=== PATIENT | male | born 1960 | race African-American/Black ===

== ENCOUNTER 2017-04-06 06:12 | Emergency (ER) | payer BC ==
[~2017-04-06] VITALS: Ht 177.8 cm; Wt 81.6 kg
[2017-04-06] MEDS ORDERED: HYDRALAZINE HC100 MG PO (06:26)
[2017-04-06] MEDS ORDERED: PRINIVIL10 MG PO (06:26)
[2017-04-06] MEDS ORDERED: NORVASC PO (06:27)
[2017-04-06] MEDS ORDERED: COREG PO (06:28)
[2017-04-06 06:50] LABS: URINE SOURCE CLEAN CATCH
[2017-04-06 06:53] LABS: URINE APPEARANCE CLEAR; URINE BILIRUBIN NEG (NEG); URINE BLOOD TRACE-INTACT (NEG); URINE COLOR YELLOW; URINE GLUCOSE NEG (NORM); URINE KETONE NEG (NEG); URINE LEUKOCYTE ESTERASE NEG (NEG); URINE NITRATE NEG (NEG); URINE PH 6.5 (5-8); URINE PROTEIN 2+ (NEG); URINE UROBILINOGEN 0.2 MG/DL (NORM)
[2017-04-06 06:54] LABS: MICRO INDICATED? YES
[2017-04-06 06:55] LABS: BASOPHIL# 0.1 X10e3 (0-0.3); BASOPHIL% 1.2 % (0-2.5); EOSINOPHIL# 0.1 X10e3 (0-0.7); EOSINOPHIL% 1.8 % (0.0-7.0); HEMATOCRIT 43.2 % (38.0-50.0); HEMOGLOBIN 14.7 gm/dL (13.0-16.0); LYMPHOCYTE# 1.4 X10e3 (1.0-3.5); LYMPHOCYTE% 21.3 % (17.0-45.0); MEAN CELL VOLUME 89.7 FL (83-96); MEAN CORPUSCULAR HEMOGLOBIN 30.5 PG (28-34); MEAN PLATELET VOLUME 9.1 FL (6.5-11.5); MONOCYTE# 0.5 X10e3 (0-1.0); NEUTROPHIL# 4.5 X10e3 (1.5-7.1); NEUTROPHIL% 67.7 % (40-75); PLATELET COUNT 183 X10e3 (140-420); RED BLOOD COUNT 4.81 X10e (3.90-5.60); RED CELL DISTRIBUTION WIDTH 13.3 % (11.0-15.5); WHITE BLOOD COUNT 6.7 X10e3 (4.0-10.5)
[2017-04-06 06:58] LABS: CULTURE INDICATED? NO; URINE BACTERIA NEG (NEG); URINE RBC 0-2 /[HPF] (0-2); URINE WBC 0-2 /[HPF] (0-5)
[2017-04-06 06:59] LABS: DIFF IND NO
[2017-04-06 07:09] LABS: BUN/CREATININE RATIO 17.77; CALCIUM SERUM 8.9 mg/dL (8.4-10.2); CREATININE SERUM 1.8 mg/dL (0.6-1.4); GLOM FILT RATE Estimated 47.7 mL/min (>60); POTASSIUM 3.4 mmol/L (3.5-5.1)
== END 2017-04-06 07:49 | disposition home or self-care (01) ==
LOC: SED 06:12
PROVIDERS: Emergency Medicine
DX: K40.90 Unilateral inguinal hernia, without obstruction or gangrene, not specified as recurrent (principal); I10 Essential (primary) hypertension
CPT/HCPCS: 36415; 80048; 81003; 85025; 96374; 99283

== ENCOUNTER 2017-05-14 01:23 | Emergency (ER) | payer BC ==
[~2017-05-14 01:23] MED LIST: COREG PO; HYDRALAZINE HC100 MG PO; NORVASC PO; PRINIVIL10 MG PO
== END 2017-05-14 01:49 | disposition left against medical advice (07) ==
LOC: SED 01:23
DX: Z53.21 Procedure and treatment not carried out due to patient leaving prior to being seen by health care provider (principal)